=== PATIENT | female | born 1990 | race Caucasian/White ===

== ENCOUNTER 2020-05-15 15:18 | Emergency (ER) | payer OTHER ==
--- NOTE | 2020-05-15 15:28 | ER Document Report ---
ED Medical Screen (RME) - General Stated Complaint: SYNCOPE Time Seen by Provider: 05/15/20 15:19 Mode of Arrival: Medic Information source: Patient Notes: Patient presents complaining of near syncopal episode that occurred around lunchtime today. Patient states that she has been feeling lightheaded nauseated while at work today. Patient states that she did get diaphoretic. Patient reports chest pain for the past several weeks. Patient presently complains of headache, fatigue, chest pain and lightheadedness. Patient has a history of hypertension although her doctor has been trying to adjust her medication as patient is attempting to get . Patient has history of diabetes although is not on any medications for her diabetes. I have greeted and performed a rapid initial assessment of this patient. A comprehensive ED assessment and evaluation of the patient, analysis of test results and completion of the medical decision making process will be conducted by additional ED providers. - Related Data Allergies/Adverse Reactions: No Known Allergies Allergy (Verified 05/15/20 15:24) Physical Exam - Vital signs Vitals: Temp Pulse Resp BP Pulse Ox 98.9 F 81 20 153/112 H 98 05/15/20 15:23 05/15/20 15:23 05/15/20 15:23 05/15/20 15:23 05/15/20 15:23 - General General appearance: Appears well, Alert - Cardiovascular Rhythm: Regular Heart sounds: S1 appreciated, S2 appreciated Course - Vital Signs Vital signs: Temp Pulse Resp BP Pulse Ox 98.9 F 81 20 153/112 H 98 05/15/20 15:23 05/15/20 15:23 05/15/20 15:23 05/15/20 15:23 05/15/20 15:23
[2020-05-15] MEDS ORDERED: KETOROLAC TROMETHAMINE INJ/PF 30 MG/1 ML SDV IV ONE (16:25)
[2020-05-15] MEDS ORDERED: METOCLOPRAMIDE HCL INJ/PF 10 MG/2 ML SDV IV ONE (16:25)
[2020-05-15] MEDS ORDERED: NORMAL SALINE 1000 ML 1,000 ML IV ONE (16:25)
--- NOTE | 2020-05-15 16:55 | RADIOLOGY REPORT (SQ) ---
EXAM DESCRIPTION: CHEST SINGLE VIEW IMAGES COMPLETED DATE/TIME: 05/15/2020 4:36 pm REASON FOR STUDY: cp COMPARISON: None. EXAM PARAMETERS: NUMBER OF VIEWS: One view. TECHNIQUE: Single frontal radiographic view of the chest acquired. RADIATION DOSE: NA LIMITATIONS: None. FINDINGS: LUNGS AND PLEURA: No opacities, masses or pneumothorax. No pleural effusion. MEDIASTINUM AND HILAR STRUCTURES: No masses. Contour normal. HEART AND VASCULAR STRUCTURES: Heart normal in size. Normal vasculature. BONES: No acute findings. HARDWARE: None in the chest. OTHER: No other significant finding. IMPRESSION: NO ACUTE RADIOGRAPHIC FINDING IN THE CHEST. TECHNICAL DOCUMENTATION: JOB ID: [id number] 2010 [employer]- All Rights Reserved Reading location - IP/workstation name: [email or web address]
[2020-05-15 17:07] LABS: APPEARANCE,URINE CLEAR; BILIRUBIN,URINE NEGATIVE (NEGATIVE); COLOR,URINE YELLOW; GLUCOSE, URINE NEGATIVE (NEGATIVE); KETONES,URINE NEGATIVE (NEGATIVE); LEUKOCYTE ESTERASE,URINE NEGATIVE (NEGATIVE); NITRITE,URINE NEGATIVE (NEGATIVE); PROTEIN,URINE NEGATIVE (NEGATIVE); URINE SPECIFIC GRAVITY 1.032; UROBILINOGEN,URINE NEGATIVE mg/dL (<2.0)
[2020-05-15 17:15] LABS: ABSOLUTE EOSINOPHILS # (AUTO) 0.1 10^3/uL (0.0-0.6); ABSOLUTE LYMPHOCYTES (AUTO) 1.8 10^3/uL (0.5-4.7); ABSOLUTE MONOCYTES (AUTO) 0.6 10^3/uL (0.1-1.4); ABSOLUTE NEUT (AUTO) 8.3 10^3/uL (1.7-8.2); BASOPHILS % (AUTO) 0.2 % (0-2); EOSINOPHILS % (AUTO) 0.6 % (0-6); HEMATOCRIT 39.1 % (36.0-47.0); HEMOGLOBIN 12.9 g/dL (12.0-15.5); LYMPHOCYTES % (AUTO) 16.7 % (13-45); MEAN CORPUSCULAR HEMOGLOBIN 25.3 pg (27.0-33.4); MEAN CORPUSCULAR HGB CONC 32.9 g/dL (32.0-36.0); MEAN CORPUSCULAR VOLUME 77 fl (80-97); MONOCYTES % (AUTO) 5.4 % (3-13); PLATELET COUNT 386 10^3/uL (150-450); RED BLOOD COUNT 5.08 10^6/uL (3.72-5.28); RED CELL DISTRIBUTION WIDTH 15.5 % (11.5-14.0); SEGMENTED NEUTROPHILS % (AUTO) 77.1 % (42-78); TOTAL CELLS COUNTED % (AUTO) 100 %; WHITE BLOOD COUNT 10.8 10^3/uL (4.0-10.5)
[2020-05-15] MEDS ORDERED: DEXTROSE 5%-LACTATED RINGERS 1,000 ML IV ONE (17:30)
--- NOTE | 2020-05-15 17:30 | ER Document Report ---
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 She reports that she felt very light headed, began sweating profusely, she had blurry vision as well as low back pain. She reports that her chest now feels tight and she is nauseated. She hurts her chest feels "hot all over" and it hurts to breathe. Her LMP was Apr 30. - Related Data Allergies/Adverse Reactions: No Known Allergies Allergy (Verified 05/15/20 15:24) Past Medical History - General Information source: Patient - Social History Smoking Status: Never Smoker Frequency of alcohol use: Rare Drug Abuse: None Family History: Reviewed & Not Pertinent - Medical History Medical History: Negative Surgical Hx: Negative Review of Systems - Review of Systems EENT: See HPI, Blurred vision Cardiovascular: See HPI, Syncope, Lightheaded Female Genitourinary: See HPI, Last menstrual period - 04/30 Musculoskeletal: See HPI, Back pain -: Yes All other systems reviewed and negative Physical Exam - Vital signs Vitals: Temp Pulse Resp BP Pulse Ox 98.9 F 81 20 153/112 H 98 05/15/20 15:23 05/15/20 15:23 05/15/20 15:23 05/15/20 15:23 05/15/20 15:23 - Notes Notes: Physical Exam: General: Alert, morbidly obese. HEENT: Normocephalic. Atraumatic. PERRL. Extraocular movements intact. Oropharynx clear. Neck: Supple. Non-tender. Respiratory: No respiratory distress. Clear and equal breath sounds bilaterally. Exquisitely tender across the entire chest wall. Cardiovascular: Regular rate and rhythm. Abdominal: Morbidly obese. Exquisitely tender across the entire upper abdomen. No distension. Normal Bowel Sounds. Back: No gross abnormalities. Extremities: Moves all four extremities. Upper extremities: Normal inspection. Normal ROM. Lower extremities: Normal inspection. No edema. Normal ROM. Neurological: Normal cognition. AAOx4. Normal speech. Psychological: Normal affect. Normal Mood. Skin: Warm. Dry. Normal color. Course - Re-evaluation Re-evalutation: 05/15/20 18:30 The patient was evaluated during the global COVID-19 pandemic and that diagnosis was suspected/considered upon their initial presentation. Their evaluation, treatment and testing was consistent with current guidelines for patients who present with complaints or symptoms that may be related to COVID-19. On repeat exam, the patient continues to have a very tender anterior chest wall with patient wincing to light palpation. The abdomen remains soft with mostly epigastric and left upper quadrant tenderness. There is no right upper quadrant tenderness at this time. Advised patient we will try GI cocktail and see if that helps the epigastric discomfort. Her lab work is remarkable for serum CO2 of 17, however her BUN is not elevated, her creatinine is not elevated, and her WBC ANC is 8.3 The urine had a specific gravity of 1.032, but was otherwise unremarkable. 05/15/20 19:27 Patient reports she did not notice much improvement after the GI cocktail, only felt a warm burning sensation in her epigastric region briefly. On re-exam at this time she remains tender in her epigastric region, is not tender in the left upper quadrant now as she was previously and is not tender in the right upper quadrant or the lower abdomen. She does seem more comfortable now and is sitting up, smiling and using her laptop computer. I will add a serum lipase just to be sure there is no pancreas involvement in her discomfort. 05/15/20 20:45 I suggested a COVID test for the patient due to this presentation of multiple different symptoms, she is refusing to be COVID tested. 05/15/20 20:48 The patient's initial complaints were near syncope, lightheaded, nausea, blurred vision, diaphoresis, legs weak, fatigue, low back pain, heartburn, and headache. She also reported chest pain for several weeks. She had previously reported that she was trying to get so her doctor was trying to decide what high blood pressure medication to use on her. She was given copies of her lab work and EKG to follow-up with her primary care provider. - Vital Signs Vital signs: Temp Pulse Resp BP Pulse Ox 98.9 F 81 20 153/112 H 99 05/15/20 15:23 05/15/20 15:23 05/15/20 15:23 05/15/20 15:23 05/15/20 16:53 - Laboratory Result Diagrams: 05/15/20 16:55 05/15/20 17:29 Laboratory results interpreted by me: 05/15/20 05/15/20 16:55 17:29 WBC 10.8 H MCV 77 L MCH 25.3 L RDW 15.5 H Absolute Neuts (auto) 8.3 H Potassium 3.5 L Chloride 119 H Carbon Dioxide 17 L Anion Gap 4 L Creatinine 0.38 L Calcium 7.1 L Magnesium 1.5 L Total Protein 5.1 L Albumin 2.7 L - Diagnostic Test Radiology reviewed: Image reviewed, Reports reviewed - Chest x-ray does not show acute radiographic abnormality. Discharge - Discharge Clinical Impression: Near syncope, Chest wall pain, Nausea, Epigastric abdominal pain Headache Qualifiers: Headache type: unspecified Headache chronicity pattern: acute headache Intractability: not intractable Qualified Code(s): R51 - Headache Fatigue Qualifiers: Fatigue type: unspecified Qualified Code(s): R53.83 - Other fatigue Condition: Stable Disposition: HOME, SELF-CARE Additional Instructions: Near Syncopal Episode Syncope (fainting or near-fainting) can occur from many different health problems. Or it can be a simple fainting spell requiring no treatment. It is safe for you to go home, but further evaluation will likely be necessary. Your work-up may include tests for internal bleeding, heart disease, medication problems, or near-strokes. Tests are not always required, however, depending on the nature of your problem. The warning signs of an impending faint include: dizziness, lightheadedness, nausea, hot flashes, tingling, and weakness. If this happens, lay down and put your feet up, then wait until all of these symptoms have passed before standing up again. If these episodes become recurrent, or if you develop chest pain, heart palpitations, mental confusion, blurred vision, or headache, then you should call the physician, or go to the emergency room. Chest Wall Pain Your chest pain has been diagnosed as coming from the chest wall. This is often caused by straining the muscles or joints in the chest during physical activity, direct trauma, coughing, or vigorous vomiting. Persons with arthritis are especially prone to this type of pain, due to inflammation of the cartilage joints near the breast bone. Occasionally, no cause can be found. Rest from strenuous physical activity. This kind of chest pain is usually made worse by movement of the chest. Depending on the symptoms, we may prescribe medicine for pain, muscle relaxation, and antiinflammatory effects. If the pain is new, and seems to be due to muscle strain, cold packs can help. Otherwise, apply gentle warmth to the painful area for 15 minutes every hour or two. You should contact the doctor immediately if things change. Further evaluation is needed if you develop a fever or cough, if the nature of the pain changes, or if you become short of breath. Abdominal Pain There are many causes of abdominal pain. Pain can mean a serious problem requiring surgery (such as appendicitis). It can also be an innocent problem that goes away on its own (such as a viral infection). Often, time must pass to determine the cause of pain. The physician does not feel that hospitalization is necessary, at present. Things may change within the next 24 hours. Call the doctor or come back for re-examination if any problems occur, such as: (1) Pain that becomes more severe, steady, or becomes concentrated in one specific area. Also, pain that is more severe with movement or coughing. (2) Vomiting that persists or becomes more frequent. (3) Blood in the vomitus, urine, or bowel movements. Blood in the stool may have a tarry or black appearance. (4) Shaking chills or fever greater than 100 degrees F. (5) The abdomen becomes more distended or swollen. (6) Bowel movements cease. (7) Failure to improve as expected. You have elected not to have COVID-19 testing done today as suggested due to the multiple different symptoms you are experiencing today. You should rest at home and drink plenty of fluids. Follow-up with your primary care provider this week for recheck if not improving. RETURN TO THE EMERGENCY ROOM IF ANY NEW OR WORSENING SYMPTOMS. Referrals: ORLANDO NEELY PA [Primary Care Provider] - Follow up as needed I personally performed the services described in the documentation, reviewed and edited the documentation which was dictated to the scribe in my presence, and it accurately records my words and actions.
[2020-05-15 17:56] LABS: ALBUMIN 2.7 g/dL (3.5-5.0); ALKALINE PHOSPHATASE 54 U/L (38-126); ASPARTATE AMINO TRANSFERASE 22 U/L (14-36); BILIRUBIN,DIRECT 0.3 mg/dL (0.0-0.4); BILIRUBIN,TOTAL 0.4 mg/dL (0.2-1.3); BLOOD UREA NITROGEN 9 mg/dL (7-20); CARBON DIOXIDE 17 mmol/L (22-30); CHLORIDE 119 mmol/L (98-107); GLUCOSE 94 mg/dL (75-110); POTASSIUM 3.5 mmol/L (3.6-5.0); TOTAL PROTEIN 5.1 g/dL (6.3-8.2)
[2020-05-15 18:03] LABS: ANION GAP 4 (5-19); CALCIUM 7.1 mg/dL (8.4-10.2)
[2020-05-15] MEDS ORDERED: LIDOCAINE 2% VISCOUS SOLN 15 ML UDCUP PO ONE (18:30)
[2020-05-15] MEDS ORDERED: MAG HYDROX/AL HYDROX/SIMETH SUSP 30 ML UDCUP PO ONE (18:30)
[2020-05-15] MEDS ORDERED: FAMOTIDINE INJ/PF 20 MG/2 ML SDV IV ONE (19:31)
[2020-05-15 21:08] VITALS: BP 136/90
--- NOTE | 2020-05-16 02:19 | EKG REPORT ---
SEVERITY:- NORMAL ECG - SINUS RHYTHM : Confirmed by: Iraj Thompson MD 16-May-2020 02:19:26
== END 2020-05-15 21:14 | disposition home or self-care (01) ==
LOC: ER 15:18
DX: R55 Syncope and collapse (principal); R07.89 Other chest pain; R10.13 Epigastric pain; R11.0 Nausea; R51 Headache; R53.83 Other fatigue; R42 Dizziness and giddiness; R61 Generalized hyperhidrosis; H53.8 Other visual disturbances; M54.5 Low back pain; M54.9 Dorsalgia, unspecified; R10.12 Left upper quadrant pain
CPT/HCPCS: 93005; 99285; 96361; 96374; 96375; 36415; 83690; 83735; 84703; 85025; 80053; 81001; 84484; 71045; 93010; J3490; J1885; J2765; J7121; J7030; S0028